=== PATIENT | male | born 1945 | race Caucasian/White ===

== ENCOUNTER 2022-09-12 09:20 | Outpatient (CLI) | payer MEDICARE | END 2022-09-12 09:21 | disposition home or self-care (01) | LOC: BICCT 09:20 | PROVIDERS: ATTEND Urology | DX: N20.0 Calculus of kidney (principal); N20.1 Calculus of ureter | CPT/HCPCS: 74176 ==

== ENCOUNTER 2023-05-03 11:03 | Outpatient (CLI) | payer MEDICARE | END 2023-05-03 11:04 | disposition home or self-care (01) | LOC: RAD 11:03 | PROVIDERS: ATTEND Internal Medicine Cardiovascular Disease | DX: R06.02 Shortness of breath (principal) | CPT/HCPCS: 71046 ==

== ENCOUNTER 2023-05-24 15:24 | Outpatient (CLI) | payer MEDICARE | END 2023-05-24 15:25 | disposition home or self-care (01) | LOC: BICRAD 15:24 | PROVIDERS: ATTEND Urology | DX: C61 Malignant neoplasm of prostate (principal); C79.82 Secondary malignant neoplasm of genital organs; N32.0 Bladder-neck obstruction; N20.0 Calculus of kidney; N28.1 Cyst of kidney, acquired | CPT/HCPCS: 74018 ==